=== PATIENT | female | born 1990 | race Caucasian/White ===

== ENCOUNTER 2024-08-23 09:59 | Outpatient (CLI) | payer BC, SELFPAY | END 2024-08-23 23:59 | disposition home or self-care (01) | LOC: RT 10:02 | PROVIDERS: PCP Nurse Practitioner; Visit Provider Nurse Practitioner | DX: R00.2 Palpitations (principal) | CPT/HCPCS: 93270; 93272 ==

== ENCOUNTER 2025-06-17 14:00 | Outpatient (CLI) | payer BC, SELFPAY ==
--- NOTE | 2025-06-17 14:04 | US_ITS ---
FINAL REPORT TECHNIQUE: Real-time grayscale and color ultrasound of the thyroid was performed. CLINICAL HISTORY: ENLARGED THYROID COMPARISON: None FINDINGS: The thyroid gland volumes are 3.1 mL on the right and 2.6 mL on the left. The isthmus measures 2 mm. The thyroid gland is mildly atrophic given volumes. The thyroid is homogeneous.. Nodules: No discrete lesions. IMPRESSION: Small thyroid. No discrete lesions. Reviewed, Interpreted and Dictated by Loly Noel MD Transcribed by Dedra Segundo Authenticated and [facility]
== END 2025-06-17 23:59 | disposition home or self-care (01) ==
LOC: RAD 14:01
PROVIDERS: PCP Nurse Practitioner; Visit Provider Nurse Practitioner
DX: E03.4 Atrophy of thyroid (acquired) (principal)
CPT/HCPCS: 76536